=== PATIENT | male | born 1960 | race Two or more races ===

== ENCOUNTER 2020-11-25 15:52 | Day surgery (SDC) | payer MEDICAID, OTHER ==
[~2020-11-25] VITALS: Ht 170.2 cm; Wt 98.8 kg
[~2020-11-25 15:52] MED LIST: IBUP-1223 PO; OXYC500S2 PO; SULF1TAB24 PO
[2020-11-25] MEDS ORDERED: SODIUM CHLORIDE FLUSH 10ML SYR IVF ONE (17:30)
[2020-11-25] MEDS ORDERED: HYDROmorphone 2 MG/ML, 1ML IVPush PRN ×2 (17:30→22:00)
[2020-11-25] MEDS ORDERED: HYDROmorphone 1 MG/ML, 1ML INJ ONE (17:59)
--- NOTE | 2020-11-25 18:01 | NUR ---
PT UPRIGHT ON GURNEY AWAKE & WATCHING TV, KYRGYZ-SPEAKING BUT RESPONDS APPROP TO STAFF, MEDICATED PER EMAR FOR C/O PAIN, COMFORT MEASURES PROVIDED, DAUGHTER AT BS, CALL LIGHT WITHIN REACH, AWAITING CT.
[2020-11-25 18:22] LABS: BASOPHILS % (AUTO) 0 % (0-1); EOSINOPHILS % (AUTO) 0 % (1-7); LYMPHOCYTES % (AUTO) 9 % (22-44); MEAN CORPUSCULAR HEMOGLOBIN 31.5 pg (27.5-34.5); MEAN PLATELET VOLUME 10.1 fL (7.4-10.4); MONOCYTES % (AUTO) 9 % (2-9); NEUTROPHILS % (AUTO) 81 % (42-75); PLATELET COUNT 176 x10^3/uL (130-400); RED BLOOD COUNT 5.21 x10^6/uL (4.38-5.82); RED CELL DISTRIBUTION WIDTH 13.5 % (9.4-14.8)
[2020-11-25 18:31] LABS: ALBUMIN 3.3 g/dL (3.4-5.0); ANION GAP 5 mmol/L (5-15); CALCIUM 8.2 mg/dL (8.5-10.1); CHLORIDE 107 mmol/L (98-107); CREATININE 0.96 mg/dL (0.7-1.3)
--- NOTE | 2020-11-25 18:46 | NUR ---
REPORT GIVEN TO SANDRA
--- NOTE | 2020-11-25 18:50 | NUR ---
PT TO CT AT THIS TIME
--- NOTE | 2020-11-25 18:50 | NUR ---
REPORT RECIEVED FROM ABHINAV ALVARES. ASSUMED CARE
[2020-11-25 18:56] LABS: MD SCAN
[2020-11-25] MEDS ORDERED: OMNIPAQUE 350 MG/ML, 100ML BOTTLE ONE (19:02)
--- NOTE | 2020-11-25 20:04 | NUR ---
MD IS BEDSIDE FOR REASSEMENT. PT EDUCATED ON PLAN OF CARE
[2020-11-25 20:44] VITALS: BP 146/100
--- NOTE | 2020-11-25 20:44 | NUR ---
ALISA MEEKS WALKED TO LAB
[2020-11-25] MEDS ORDERED: BUPIVACAINE/PF 0.5% ONE (20:49)
[2020-11-25] MEDS ORDERED: BUPIVACAINE/PF 0.5% INFIL ONE (21:00)
[2020-11-25] MEDS ORDERED: AMLO-211 PO (21:04)
[2020-11-25] MEDS ORDERED: ATOR40TA78 PO (21:04)
[2020-11-25] MEDS ORDERED: TERA10CA3 PO (21:05)
[2020-11-25] MEDS ORDERED: FENTANYL PF 100 MCG/2ML ONE ×2 (21:07→22:17)
[2020-11-25] MEDS ORDERED: MIDAZOLAM 1 MG/ML, 2ML ONE (21:08)
[2020-11-25] MEDS ORDERED: ONDANSETRON 2MG/ML, 2ML ONE (21:19)
[2020-11-25] MEDS ORDERED: CEFOTETAN 2 GM ONE (21:19)
[2020-11-25] MEDS ORDERED: PROPOFOL 10 MG/ML, 20ML ONE (21:19)
[2020-11-25] MEDS ORDERED: KETOROLAC 30 MG/1 ML ONE (21:19)
[2020-11-25] MEDS ORDERED: SUCCINYLCHOLINE 20 MG/ML, 10ML ONE (21:19)
[2020-11-25] MEDS ORDERED: FENTANYL PF 250 MCG/5ML ONE (21:54)
[2020-11-25] MEDS ORDERED: hydrALAzine 20 MG/ML, 1ML IV PRN (22:00)
[2020-11-25] MEDS ORDERED: PROMETHAZINE 25 MG/ML, 1ML IV PRN (22:00)
[2020-11-25] MEDS ORDERED: DIAZEPAM 5 MG/ML, 2ML IVPush PRN (22:00)
[2020-11-25] MEDS ORDERED: CEFOTETAN PMX 2GM/50ML 50 ML IVPB ONE (22:00)
[2020-11-25] MEDS ORDERED: LABETALOL 5MG/ML, 20ML IV PRN (22:00)
[2020-11-25] MEDS ORDERED: KETOROLAC 30 MG/1 ML IV PRN (22:00)
[2020-11-25] MEDS ORDERED: ALBUTEROL SULFATE 2.5 MG/3 ML NPPB PRN (22:00)
[2020-11-25] MEDS ORDERED: OXYcodone 5 MG/5 ML ORAL.SOL UDC PO PRN (22:00)
[2020-11-25] MEDS ORDERED: MEPERIDINE/PF 25MG/0.5ML IVPush PRN (22:00)
[2020-11-25] MEDS ORDERED: ACETAMINOPHEN 325 MG TABLET PO PRN (22:00)
[2020-11-25] MEDS ORDERED: OXYcodone 5 MG/5 ML ORAL.SOL UDC ONE (22:09)
[2020-11-25] MEDS ORDERED: ACETAMINOPHEN 650 MG/20.3 ML UDC ONE (22:09)
[2020-11-25] MEDS: FENTANYL PF 100 MCG/2ML IV PRN ×2 (22:18→22:29)
== END 2020-11-26 00:25 | disposition home or self-care (01) ==
LOC: ED 17:55 → EDIP 20:51 → UNDOADMIN 20:51 → OUT 20:51 → 4NE 23:15 → EDIP 23:15 → UNDODISIN 11-26 00:25 → OUT 11-26 00:25
PROVIDERS: ATTEND Colon & Rectal Surgery
DX: K61.0 Anal abscess (principal); N50.3 Cyst of epididymis; I10 Essential (primary) hypertension; E78.5 Hyperlipidemia, unspecified; Z20.822 Contact with and (suspected) exposure to COVID-19; Z98.890 Other specified postprocedural states; Z79.899 Other long term (current) drug therapy; Z72.89 Other problems related to lifestyle
CPT/HCPCS: 36415; 46050; 72193; 80048; 82040; 85025; 87070; 87075; 87205; 87635; 96374; 96375; 99285; J0330; J1170; J1885; J2250; J2405; J2704; J3010; Q9967; G0378